=== PATIENT | male | born 1955 | race African-American/Black ===

== ENCOUNTER 2018-03-28 15:51 | Emergency (ER) | payer MEDICARE ==
[2018-03-28] MEDS ORDERED: Azithromycin 250 MG TAB ONE (16:26)
== END 2018-03-28 16:40 | disposition home or self-care (01) ==
LOC: NAV ERS 15:51
DX: J01.90 Acute sinusitis, unspecified (principal); E11.9 Type 2 diabetes mellitus without complications; E78.5 Hyperlipidemia, unspecified; F17.210 Nicotine dependence, cigarettes, uncomplicated; Z79.84 Long term (current) use of oral hypoglycemic drugs; Z79.899 Other long term (current) drug therapy
CPT/HCPCS: 99283

== ENCOUNTER 2021-11-22 13:39 | Emergency (ER) | payer MEDICARE ==
[2021-11-22] MEDS ORDERED: Bacitracin 1 PK ONE (13:54)
[2021-11-22] MEDS ORDERED: Ketorolac Tromethamine 30 MG/ML VIAL ONE (14:06)
[2021-11-22] MEDS ORDERED: Boostrix 0.5 ML (Tdap) VIAL ONE (14:06)
== END 2021-11-22 14:25 | disposition home or self-care (01) ==
LOC: NAV ERS 13:39
DX: T20.07XA Burn of unspecified degree of neck, initial encounter (principal); E11.9 Type 2 diabetes mellitus without complications; E78.5 Hyperlipidemia, unspecified; F17.210 Nicotine dependence, cigarettes, uncomplicated; Z79.899 Other long term (current) drug therapy; X10.2XXA Contact with fats and cooking oils, initial encounter
CPT/HCPCS: 16020; 90471; 90715; 96372; J1885

== ENCOUNTER 2022-01-06 14:22 | Emergency (ER) | payer MEDICARE ==
[2022-01-06] MEDS ORDERED: HYDROcodone/Acetaminophen 5/325 mg Tablet ONE (14:55)
== END 2022-01-06 14:59 | disposition home or self-care (01) ==
LOC: NAV ERS 14:22
DX: K04.4 Acute apical periodontitis of pulpal origin (principal); K02.9 Dental caries, unspecified; E11.9 Type 2 diabetes mellitus without complications; E78.00 Pure hypercholesterolemia, unspecified; F17.210 Nicotine dependence, cigarettes, uncomplicated
CPT/HCPCS: 99282

== ENCOUNTER 2022-04-02 14:50 | Emergency (ER) | payer MEDICARE | END 2022-04-02 15:40 | disposition home or self-care (01) | LOC: NAV ERS 14:50 | DX: R09.81 Nasal congestion (principal); R05.9 Cough, unspecified; R51.9 Headache, unspecified; E11.9 Type 2 diabetes mellitus without complications; E78.00 Pure hypercholesterolemia, unspecified; F17.210 Nicotine dependence, cigarettes, uncomplicated | CPT/HCPCS: 99283 ==

== ENCOUNTER 2023-07-02 19:42 | Emergency (ER) | payer MEDICARE ==
[2023-07-02] MEDS ORDERED: Lidocaine 1% (PF) 30 ML VIAL ONE (20:26)
[2023-07-02] MEDS ORDERED: cefTRIAXone (ROCEPHIN) 1 GM VIAL ONE (20:26)
[2023-07-02] MEDS ORDERED: Ketorolac Tromethamine 30 MG (1 mL) VIAL ONE (20:26)
== END 2023-07-02 20:50 | disposition home or self-care (01) ==
LOC: NAV ERS 19:42
DX: J01.10 Acute frontal sinusitis, unspecified (principal); J32.2 Chronic ethmoidal sinusitis; B95.8 Unspecified staphylococcus as the cause of diseases classified elsewhere; E11.9 Type 2 diabetes mellitus without complications; F17.210 Nicotine dependence, cigarettes, uncomplicated
CPT/HCPCS: 96372; 99283; J0696; J1885; J2001

== ENCOUNTER 2023-10-06 16:42 | Emergency (ER) | payer MEDICARE | END 2023-10-06 17:18 | disposition home or self-care (01) | LOC: NAV ERS 16:42 | DX: J01.00 Acute maxillary sinusitis, unspecified (principal); J01.10 Acute frontal sinusitis, unspecified; E11.9 Type 2 diabetes mellitus without complications; Z79.84 Long term (current) use of oral hypoglycemic drugs | CPT/HCPCS: 99283 ==